=== PATIENT | female | born 1965 | race Caucasian/White ===

== ENCOUNTER 2016-10-23 07:56 | Emergency (ER) | payer BC ==
[~2016-10-23] VITALS: Ht 167.6 cm; Wt 95.3 kg
--- NOTE | 2016-10-23 08:24 | PHYS DOC ---
Adult General Chief Complaint Chief Complaint: COUGH HPI HPI Patient is a 51 year old female who presents with a dry cough for months. Patient states she has taken multiple antibiotics in the last 1 month including azithromycin and just finished doxycycline yesterday. Patient denies any fever. Patient states she has been seen at multiple urgent cares as well. She states she has been given cough syrup as well as Tessalon Perles and nothing is helping. She has history of smoking. Review of Systems Review of Systems Constitutional: Denies fever or chills [] Eyes: Denies change in visual acuity, redness, or eye pain [] HENT: Denies nasal congestion or sore throat [] Respiratory: Cough Cardiovascular: No additional information not addressed in HPI [] GI: Denies abdominal pain, nausea, vomiting, bloody stools or diarrhea [] : Denies dysuria or hematuria [] Musculoskeletal: Denies back pain or joint pain [] Integument: Denies rash or skin lesions [] Neurologic: Denies headache, focal weakness or sensory changes [] Endocrine: Denies polyuria or polydipsia [] Current Medications Current Medications Current Medications Medications (Trade) Dose Ordered Sig/Ángel Start Time Stop Time Status Last Admin Dose Admin Albuterol/ Ipratropium (Duoneb) 3 ml 1X ONCE 10/23/16 08:30 10/23/16 08:31 DC 10/23/16 08:30 3 ML Benzonatate (Tessalon Perle) 200 mg 1X ONCE 10/23/16 08:30 10/23/16 08:31 DC 10/23/16 08:32 200 MG Prednisone (Prednisone) 60 mg 1X ONCE 10/23/16 08:30 10/23/16 08:31 DC 10/23/16 08:32 60 MG Allergies Allergies Allergies Coded Allergies Type Severity Reaction Last Updated Verified No Known Drug Allergies 10/23/16 No Physical Exam Physical Exam Constitutional: Well developed, well nourished, no acute distress, non-toxic appearance. [] HENT: Normocephalic, atraumatic, bilateral external ears normal, oropharynx moist, no oral exudates, nose normal. [] Eyes: PERRLA, EOMI, conjunctiva normal, no discharge. [] Neck: Normal range of motion, no tenderness, supple, no stridor. [] Cardiovascular:Heart rate regular rhythm, no murmur [] Lungs & Thorax: Bilateral breath sounds clear to auscultation [] Abdomen: Bowel sounds normal, soft, no tenderness, no masses, no pulsatile masses. [] Skin: Warm, dry, no erythema, no rash. [] Back: No tenderness, no CVA tenderness. [] Extremities: No tenderness, no cyanosis, no clubbing, ROM intact, no edema. [] Neurologic: Alert and oriented X 3, normal motor function, normal sensory function, no focal deficits noted. [] Psychologic: Affect normal, judgement normal, mood normal. [] Current Patient Data Vital Signs Vital Signs Date Time Temp Pulse Resp B/P (MAP) Pulse Ox O2 Delivery O2 Flow Rate FiO2 10/23/16 08:31 98 Room Air 10/23/16 08:00 98.6 77 15 128/72 (90) 98.6 EKG EKG [] Radiology/Procedures Radiology/Procedures []PROCEDURE: CHEST PA & LATERAL Chest, 2 views, 10/23/2016: History: Cough, shortness of breath The heart size and pulmonary vascularity are normal. No pulmonary infiltrates are seen. There is no evidence of pleural fluid. IMPRESSION: No acute cardiopulmonary abnormality is detected. DICTATED and SIGNED BY: YUKI REYES MD DATE: 10/23/16 0850 CC: KATARZYNA HOLBROOK APRN ~ Course & Med Decision Making Course & Med Decision Making Pertinent Labs and Imaging studies reviewed. (See chart for details) This is a 51-year-old female patient who presents to the ED today with a dry cough for the last 1 month. Patient states she has taken multiple antibiotics including azithromycin and just finished visit doxycycline yesterday. Patient is a smoker. I encouraged her to consider smoking cessation. Chest x-ray interpreted by radiologist as negative for any acute findings. Patient's symptoms are consistent of bronchitis. Patient was given a breathing treatment prednisone and Tessalon Perles and discharged with the same. She is to follow- up with her own PCP as soon as she can. Dragon Disclaimer Dragon Disclaimer This electronic medical record was generated, in whole or in part, using a voice recognition dictation system. Departure Departure Impression: Primary Impression: Acute bronchitis Additional Impression: Smoking addiction Disposition: 01 HOME, SELF-CARE Condition: STABLE Patient Instructions: Acute Bronchitis, [id number], Smoking Cessation Additional Instructions: You were seen for acute bronchitis. Please consider smoking cessation. Take the prescribed medicines as ordered. Follow-up with your doctor in 1-2 weeks. If you are not able to follow-up with your own doctor we provided you with a list of other doctors, consider seeing one of them. Scripts Benzonatate (TESSALON PERLE) 100 Mg Capsule 1-2 CAP PO TID, #30 CAP Prov: KATARZYNA HOLBROOK APRN 10/23/16 Prednisone (PREDNISONE) 50 Mg Tablet 1 TAB PO DAILY, #4 TAB Prov: KATARZYNA HOLBROOK APRN 10/23/16 Albuterol Sulfate (Proair Respiclick) 90 Mcg Aer.pow.ba 1 PUFF IH PRN Q6HRS Y for SHORTNESS OF BREATH, #1 INHALER Prov: KATARZYNA HOLBROOK APRN 10/23/16 Problem Qualifiers Primary Impression: Acute bronchitis Bronchitis organism: unspecified organism Qualified Codes: J20.9 - Acute bronchitis, unspecified KATARZYNA HOLBROOK APRN Oct 23, 2016 08:23
[2016-10-23] MEDS ORDERED: IPRATRPIUM/ALBUTEROL 0.5/2.5MG 3 ML NEBU. NEB ONE (08:30)
[2016-10-23] MEDS ORDERED: predniSONE 20 MG TABLET PO ONE (08:30)
[2016-10-23] MEDS ORDERED: BENZONATATE 100 MG CAPSULE. PO ONE (08:30)
--- NOTE | 2016-10-23 08:53 | RAD ---
Chest, 2 views, 10/23/2016: History: Cough, shortness of breath The heart size and pulmonary vascularity are normal. No pulmonary infiltrates are seen. There is no evidence of pleural fluid. IMPRESSION: No acute cardiopulmonary abnormality is detected.
[2016-10-23 09:30] VITALS: BP 139/83
[2016-10-23] MEDS ORDERED: PROAIR RESPICL90 MCG IH (09:36)
[2016-10-23] MEDS ORDERED: PRED50TA PO (09:36)
[2016-10-23] MEDS ORDERED: BENZ100C PO (09:36)
== END 2016-10-23 09:45 | disposition home or self-care (01) ==
LOC: ER 07:56
DX: J20.9 Acute bronchitis, unspecified (principal); F17.200 Nicotine dependence, unspecified, uncomplicated
CPT/HCPCS: 71020; 94250; 94640; 94760; 99284; J7512; J7620